=== PATIENT | male | born 1975 | race Hispanic/Latino ===

== ENCOUNTER 2020-10-10 18:07 | Emergency (ER) | payer SELFPAY ==
[~2020-10-10] VITALS: Ht 170.2 cm; Wt 105.2 kg
[2020-10-10] MEDS ORDERED: CYCL10 PO (18:57)
[2020-10-10] MEDS ORDERED: TRAM1TAB PO (18:57)
== END 2020-10-10 19:12 | disposition home or self-care (01) ==
LOC: EDH 18:07
DX: E11.40 Type 2 diabetes mellitus with diabetic neuropathy, unspecified (principal); I10 Essential (primary) hypertension; E78.00 Pure hypercholesterolemia, unspecified; F10.20 Alcohol dependence, uncomplicated